=== PATIENT | female | born 1955 | race Caucasian/White ===

== ENCOUNTER → 2016-11-19 | Outpatient (CLI) | payer OTHER ==
--- NOTE | 2016-11-20 17:30 | CR ---
EXAM DATE: 11/19/16 PATIENT'S AGE: 60 Patient: KATHY MAGALLANES Facility: [place], [place] Site . Site : 1955 Study: XRay Chest [id number]/9/2017 10:56:55 AM Ordering Physician: Thalia Parker Final Report: INDICATION: Chest pain. TECHNIQUE: PA and lateral. COMPARISON: None. FINDINGS: Lungs clear. No pleural effusion or pneumothorax. Heart size and pulmonary vasculature within normal limits. No obvious rib fracture or other significant osseous abnormality. IMPRESSION: Negative chest. Dictated by Chris Evans MD @ Nov 20 2016 2:17PM (Electronic Signature) Report Signed by Proxy and Original Signed Document filed in the Medical Record. MTDD
== END ==
LOC: MW.CHFP 09:04
PROVIDERS: ATTEND Family Medicine
DX: R07.89 Other chest pain (principal); R20.2 Paresthesia of skin
CPT/HCPCS: 36415; 71020; 71020-26; 82607; 84443

== ENCOUNTER → 2016-12-14 | Outpatient (CLI) | payer OTHER ==
--- NOTE | 2016-12-24 17:06 | NM ---
EXAM DATE: 12/14/16 PATIENT'S AGE: 60 ADDENDUM: Additional images were obtained at rest following the administration of 26.5 mCi of technetium 99M labeled sestamibi. FINDINGS/IMPRESSION: Overall the perfusion pattern at rest demonstrates a more pronounced perfusion defect along the inferior wall relative to stress. This extends slightly into the septal and inferior santos as well. The ejection fraction at rest is 58%. No evidence of myocardial ischemia. EXAMINATION: Nuclear medicine myocardial perfusion study with exercise stress test. HISTORY: Chest pain. PROCEDURE: Patient exercised according to Jerry protocol for 10 minutes and 2 seconds and achieved maximal heart rate of 175 beats per minute. Adequate exercise. Following intravenous administration of 26.7 mCi of technetium 99m sestamibi, stress and rest SPECT images including gating imaging was performed. FINDINGS: Stress and rest myocardial SPECT images demonstrates minimally decreased uptake along the inferior wall however there is normal thickening and wall motion in this region. This is likely artifactual. Review of gated images demonstrates normal wall motion, contractility and wall thickening. The left ventricular ejection fraction is 66 %. The left ventricular chamber size is normal. IMPRESSION: 1. Minimal decreased uptake along the inferior wall, correlate with rest imaging. 2. Normal ventricular chamber size and function with ejection fraction of 66 %. MTDD
== END | disposition home or self-care (01) ==
LOC: MW.NM 13:22
PROVIDERS: ATTEND Family Medicine
DX: R07.89 Other chest pain (principal); E78.00 Pure hypercholesterolemia, unspecified
CPT/HCPCS: 78451; A9500